=== PATIENT | male | born 1950 | race American Indian/Alaskan Native ===

== ENCOUNTER 2018-06-14 08:31 | Day surgery (SDC) | payer MEDICARE, OTHER ==
--- NOTE | 2018-06-11 10:57 | Anesthesia Consultation ---
Anesthesia Consult and Med Hx Date of service: 06/11/18 - Airway ROM Head & Neck: Adequate Mental/Hyoid Distance: Adequate Mallampati Class: Class II Intubation Access Assessment: Probably Good - Pulmonary Exam CTA: Yes - Cardiac Exam Cardiac Exam: RRR - Pre-Operative Health Status ASA Pre-Surgery Classification: ASA3 Proposed Anesthetic Plan: General Nerve Block: IS (hx of irreg heart beat, takes flecanide, and toporol, denies SOB, denies CAD, or stents) - Pulmonary Hx Smoking: No Hx Sleep Apnea: Yes - Cardiovascular System Hx Hypertension: No (Takes BP med but states as preventative due to A fib.) Hx Cardia Arrhythmia: Yes (PAROX. AFIB) - Central Nervous System Hx Seizures: No Hx Back Pain: Yes (Cervical stenosis) Hx Psychiatric Problems: No - Gastrointestinal Hx Gastroesophageal Reflux Disease: No - Endocrine Hx Non-Insulin Dependent Diabetes: No - Other Systems Hx Alcohol Use: Yes Hx Cancer: Yes Hx Obesity: No
[~2018-06-14 08:31] MED LIST: ADRENALINE P/F ONE; ANCEF/STERILE WATER 2 GM/20 ML IV NR; DEPO-Medrol ONE; LACTATED RINGERS 1,000 ML IV SCH; MARCAINE-EPI/PF 0.25%-1:200,000 INFILTRATI ONE; NEURONTIN PO NR; VERSED IV NR
[2018-06-14] MEDS ORDERED: SUBLIMAZE ONE (09:29)
[2018-06-14] MEDS ORDERED: DECADRON ONE (09:29)
[2018-06-14] MEDS ORDERED: PEPCID IV ONE (09:30)
[2018-06-14] MEDS ORDERED: DIPRIVAN 10 MG/ML IV ONE (09:42)
[2018-06-14] MEDS ORDERED: DILAUDID ONE (09:42)
[2018-06-14] MEDS ORDERED: XYLOCAINE MPF 2% ONE (09:43)
[2018-06-14] MEDS ORDERED: QUELICIN ONE (09:43)
[2018-06-14] MEDS ORDERED: ZEMURON IV ONE (09:43)
[2018-06-14] MEDS ORDERED: LACTATED RINGERS 1,000 ML ONE (11:53)
[2018-06-14] MEDS ORDERED: NACL 0.9% IR ONE ×3 (12:48)
[2018-06-14] MEDS ORDERED: ADRENALIN IV ONE (12:48)
[2018-06-14] MEDS ORDERED: DEPO-Medrol INTRA-ARTI ONE (12:48)
[2018-06-14] MEDS ORDERED: MARCAINE-EPI 0.5%-1:200,000 INFILTRATI ONE (12:48)
[2018-06-14] MEDS ORDERED: DILAUDID IV PRN (13:03)
[2018-06-14] MEDS ORDERED: ZOFRAN IV PRN (13:03)
--- NOTE | 2018-06-14 13:03 | Anesthesia Day of Surgery ---
Anesthesia Day of Surgery - Day of Surgery Patient Examined: Yes Patient H&P Reviewed: Yes Patient is NPO: Yes
[2018-06-14] MEDS ORDERED: ZOFRAN ONE (13:47)
[2018-06-14] MEDS ORDERED: ROBINUL ONE (14:12)
--- NOTE | 2018-06-14 14:35 | Procedure Note ---
Date of procedure: 06/14/18 Pre-op diagnosis: impingement syndrome possible rotator cuff tear left shoulder Post-op diagnosis: other (full-thickness rotator cuff tear left shoulder) Procedure: Arthroscopy left shoulder with subacromial decompression and a rotator cuff tear using suture anchors Arthroscopy left shoulder with subacromial decompression and rotator cuff tendon using suture anchors Procedure The patient was brought to the OR placed in the OR table in supine position following induction and intubation by anesthesia patient was placed in the right lateral decubitus position the left upper extremity was prepped and draped in the usual sterile manner. A timeout procedure was done to identify the patient and the correct operative site. Routine arthroscopic portals were made following introduction of the arthroscope and instruments and insufflation of the subacromial space with normal saline solution patient was noted to have a full-thickness rotator cuff tear which extended from the supraspinatus anteriorly towards the infraspinatus posteriorly along with a large bony spur off the lateral margins of the humeral head In addition he was also noted to have abundant synovial bursal thickening as well as significant impingement from the acromion and acromioclavicular joints. Using a tissue ablator the soft tissue was removed from both the bursal tissues as well as the periosteal tissues overlying the distal acromion and acromioclavicular joints A large bur was used to debride the bony impingement again this was done under arthroscopic visualization. The anatomic footprint was then seen and debrided using the tissue ablator the rotator cuff tendon was grasped using a tissue grasper and appeared to move quite mobile and to anterior cruciate ligament footprint.Next 2 suture anchor sutures were placed into these supraspinatus tendon anteriorly as well as the infraspinatus tendon posteriorly the suture anchors were secured into the greater tuberosity followed by tightening of the sutures and pulling the rotator cuff tendon firmly onto the anatomic footprint arthroscopic photographs were obtained showing good placement of the rotator cuff repair following this the wound was copiously irrigated via stab wounds were repaired with 2 postop dressings were applied the patient was extubated and was taken to postanesthesia recovery in stable condition. Patient will also receive a scalene nerve block for postop pain management Anesthesia: JACQUI, regional Surgeon: CARMEN CARDOZA Estimated blood loss: 50-100ml Pathology: none Condition: stable Disposition: PACU
[2018-06-14 16:49] VITALS: BP 110/76
--- NOTE | 2018-06-14 18:24 | Post Anesthesia Evaluation ---
- Post Anesthesia Evaluation Patient Participated: Yes Airway Patent: Yes Stable Respiratory Function: Yes Nausea/Vomiting: No Temp > 96.8F: Yes Pain Manageable: Yes Adequeate Hydration: Yes Anesthesia Complications: No
== END 2018-06-14 16:40 | disposition home or self-care (01) ==
LOC: OR 08:31
PROVIDERS: ATTEND Orthopaedic Surgery
DX: M75.112 Incomplete rotator cuff tear or rupture of left shoulder, not specified as traumatic (principal); M75.42 Impingement syndrome of left shoulder; I48.91 Unspecified atrial fibrillation; M19.90 Unspecified osteoarthritis, unspecified site; G47.33 Obstructive sleep apnea (adult) (pediatric); Z79.82 Long term (current) use of aspirin; Z79.899 Other long term (current) drug therapy; Z72.89 Other problems related to lifestyle; Z99.89 Dependence on other enabling machines and devices; Z92.3 Personal history of irradiation; Z85.46 Personal history of malignant neoplasm of prostate; Z98.890 Other specified postprocedural states
CPT/HCPCS: 29826; 29827; A4217; C1713; J0171; J0330; J0690; J1030; J1100; J1170; J2250; J2405; J2704; J3010; J7120

== ENCOUNTER 2018-08-30 10:28 | Outpatient (CLI) | payer MEDICARE, OTHER ==
[2018-08-30 13:51] LABS: Alanine Aminotransferase 18 units/L (7-56); Albumin 4.1 g/dL (3.9-5); BUN/Creatinine Ratio 12; Blood Urea Nitrogen 14 mg/dL (9-20); Calcium 9.3 mg/dL (8.4-10.2); Chol/HDL Ratio 2.63 %; HDL Cholesterol 65 mg/dL (40-59); Hemolysis Index 5; LDL Cholesterol,Direct 112 mg/dL (50-130)
== END 2018-08-30 10:29 | disposition home or self-care (01) ==
LOC: LAB 10:28
PROVIDERS: ATTEND Internal Medicine
DX: E78.5 Hyperlipidemia, unspecified (principal); I10 Essential (primary) hypertension; I48.91 Unspecified atrial fibrillation; M19.90 Unspecified osteoarthritis, unspecified site; N40.0 Benign prostatic hyperplasia without lower urinary tract symptoms; Z72.89 Other problems related to lifestyle
CPT/HCPCS: 36415; 80053; 80061

== ENCOUNTER 2019-01-08 10:04 | Outpatient (CLI) | payer MEDICARE, OTHER ==
--- NOTE | 2019-01-08 13:29 | Magnetic Resonance Report ---
MRI CERVICAL SPINE 01/08/2019 INDICATION / CLINICAL INFORMATION: Neck pain.. COMPARISON: None available. FINDINGS: GENERAL OBSERVATIONS: Unenhanced MR images of the cervical spine were obtained. Slight reversal of cervical lordosis is centered at the C4 level with the patient positioned for this exam. There is no evidence of spinal cord compression or intrinsic spinal cord abnormality. [id number] ANALYSIS: C7-T1: Minimal diffuse disc bulging. C6-7: Mild symmetric diffuse disc bulging. C5-6: Mild symmetric diffuse disc bulging. C4-5: Moderate symmetric diffuse disc bulging. Moderate central canal narrowing is present. C3-4: Prominent diffuse disc bulging associated with moderately severe central canal stenosis. Bilate ral foraminal narrowing is present. C2-3: The disc profile is well preserved. Right-sided facet degenerative changes are present, with no evidence of nerve root compression. CRANIO-CERVICAL JUNCTION: Unremarkable. BONE MARROW: Unremarkable. Mild degenerative changes. PARASPINAL SOFT TISSUES: No significant abnormality. IMPRESSION: Multilevel degenerative changes as detailed above. Moderately severe stenosis at C3-4. Moderate cent ral canal narrowing at C4-5. Signer Name: Herb Reed MD Signed: 01/08/2019 1:25 PM Workstation Name: [id number]
--- NOTE | 2019-01-08 15:39 | Magnetic Resonance Report ---
MRI LUMBAR SPINE 11/22/2018 INDICATION / CLINICAL INFORMATION: LUMBAGO WITH SCIATICA LEFT. COMPARISON: None available. FINDINGS: GENERAL OBSERVATIONS: Unenhanced MR images of the lumbar spine were obtained. Some patient motion artifact is present on these images. There is a left convex scoliosis of the lumbar spine present. Multilevel degenerative disc and facet changes are noted. [id number] ANALYSIS: L5-S1: Moderate diffuse disc bulging and left greater than right facet degenerative changes are prese nt., Associated with bilateral foraminal narrowing. L4-5: Prominent diffuse disc bulging associated with left greater than right facet degenerative hussein ges. Moderately severe central canal stenosis is present, associated with significant left-sided fora yonatan impingement. L3-4: Moderate diffuse disc bulging and facet degenerative changes are present. Moderate central ashok l narrowing is noted with no evidence of lateralization. L2-3: Mild diffuse disc bulging is present, slightly more pronounced on the right, with no evidence o f nerve root compression. L1-2: Mild diffuse disc bulging, also slightly more pronounced on the right. Right-sided foraminal na rrowing is present at this level. BONE MARROW: Degenerative bone marrow signal changes are present throughout the lumbar spine. SPINAL CORD/CAUDA EQUINA: The distal spinal cord and cauda equina are unremarkable. PARASPINAL SOFT TISSUES: No significant abnormality. IMPRESSION: Multilevel degenerative changes associated with scoliosis as detailed above. Left-sided foraminal shailesh rowing at L4-5. Signer Name: Herb Reed MD Signed: 01/08/2019 3:34 PM Workstation Name: [id number]
== END 2019-01-08 10:05 | disposition home or self-care (01) ==
LOC: MRI 10:04
PROVIDERS: ATTEND Orthopaedic Surgery
DX: M47.816 Spondylosis without myelopathy or radiculopathy, lumbar region (principal); M48.061 Spinal stenosis, lumbar region without neurogenic claudication; M51.26 Other intervertebral disc displacement, lumbar region; M47.812 Spondylosis without myelopathy or radiculopathy, cervical region; M48.02 Spinal stenosis, cervical region; M50.23 Other cervical disc displacement, cervicothoracic region; I10 Essential (primary) hypertension
CPT/HCPCS: 72141; 72148

== ENCOUNTER 2020-04-16 06:30 | Day surgery (SDC) | payer MEDICARE, OTHER ==
--- NOTE | 2020-04-13 11:13 | Anesthesia Consultation ---
Anesthesia Consult and Med Hx Date of service: 04/16/20 - Airway Anesthetic Teeth Evaluation: Caps, Bridges ROM Head & Neck: Adequate Mental/Hyoid Distance: Adequate Mallampati Class: Class III Intubation Access Assessment: Probably Good - Pre-Operative Health Status ASA Pre-Surgery Classification: ASA3 Nerve Block: Sciatic (BLOCK; GA if needed) - Pulmonary Hx Smoking: No Hx Asthma: No (+2FS) COPD: No Hx Pneumonia: No Hx Sleep Apnea: Yes (DX SLEEP APNEA , NO CPAP USE.) - Cardiovascular System Hx Hypertension: No (Takes BP med but states as preventative due to A fib.) Hx Heart Attack/AMI: No (Saw his gas dispatcher [phone] and is "cleared") Hx Cardia Arrhythmia: Yes (PAROX. AFIB) Hx Pacemaker: No Hx Internal Defibrillator: No - Central Nervous System Hx Seizures: No Hx Back Pain: Yes (Cervical stenosis CERVICALGIA) Hx Psychiatric Problems: No - Gastrointestinal Hx Ulcer: No Hx Gastroesophageal Reflux Disease: No - Endocrine Hx End Stage Renal Disease: No Hx Cirrhosis: No Hx Liver Disease: No Hx Non-Insulin Dependent Diabetes: No - Hematic Hx Anemia: No Hx Sickle Cell Disease: No - Other Systems Hx Alcohol Use: Yes (BEER & WINE 1-2 X WEEK) Hx Substance Use: No Hx Cancer: Yes (Prostate) Hx Obesity: No
[2020-04-13 11:36] LABS: Hematocrit 41.9 % (35.5-45.6); Hemoglobin 14.7 gm/dl (11.8-15.2); Mean Corpuscular HGB Conc 35 % (32-34); Mean Corpuscular Volume 94 fl (84-94); Platelet Count 167 K/mm3 (140-440); Red Blood Count 4.47 M/mm3 (3.65-5.03); Red Cell Distribution Width 13.3 % (13.2-15.2)
[2020-04-13 11:56] LABS: BUN/Creatinine Ratio 14; Blood Urea Nitrogen 17 mg/dL (9-20); Calcium 9.4 mg/dL (8.4-10.2); Hemolysis Index 21
--- NOTE | 2020-04-13 13:23 | XRay Report ---
RIGHT FOOT 3 VIEWS INDICATION: PREOP. COMPARISON: None. IMPRESSION: No acute osseous or soft tissue abnormality. No significant DJD. Signer Name: Tim Garay Jr, MD Signed: 04/13/2020 1:18 PM Workstation Name: [id number]
[2020-04-16] MEDS ORDERED: HYDROmorphone 1 MG/1 ML INJ IV PRN (07:18)
[2020-04-16] MEDS ORDERED: ONDANSETRON 4 MG/2 ML INJ IV PRN (07:18)
--- NOTE | 2020-04-16 07:18 | Anesthesia Day of Surgery ---
Anesthesia Day of Surgery - Day of Surgery Patient Examined: Yes Patient H&P Reviewed: Yes Patient is NPO: Yes Beta Blockers: Yes
[2020-04-16] MEDS ORDERED: BUPIVACAINE/PF (0.25%) 2.5 MG/ML 30 ML VIAL INFILTRATI ONE (07:28)
[2020-04-16] MEDS ORDERED: fentaNYL 100 MCG/2 ML INJ ONE (07:32)
[2020-04-16] MEDS ORDERED: MIDAZOLAM 2 MG/2 ML INJ ONE (07:32)
[2020-04-16 07:35] LABS: INR 1.04 (0.87-1.13); Partial Thromboplastin Time 25.6 Sec. (24.2-36.6)
[2020-04-16] MEDS ORDERED: LACTATED RINGERS 1,000 ML IV SCH (08:00)
[2020-04-16] MEDS ORDERED: ceFAZolin 1 GM VIAL ONE ×2 (08:27→08:28)
[2020-04-16] MEDS ORDERED: propofoL 200 MG/20 ML VIAL IV ONE ×2 (08:30→09:02)
[2020-04-16] MEDS ORDERED: KETAMINE/STERILE WATER 50 MG/ML SYRINGE ONE (08:43)
[2020-04-16] MEDS ORDERED: SODIUM CHLORIDE 0.9% 1000 ML 1,000 ML ONE (09:03)
[2020-04-16] MEDS ORDERED: SODIUM CHLORIDE 0.9% IRR 1,500 ML BOTTLE IR ONE (09:31)
--- NOTE | 2020-04-16 09:33 | Procedure Note ---
Date of procedure: 04/16/20 Pre-op diagnosis: Right bunion deformity Post-op diagnosis: same Procedure: Right bunionectomy Procedure Patient was brought to the operating room after being given a regional nerve block in preop holding patient was then placed onto the OR table in supine position next the right lower extremity was prepped and draped in the usual sterile manner. A timeout procedure was done to identify the patient and the correct operative site. The leg was exsanguinated followed by inflation of the pneumatic tourniquet to 300 mmHg Next a medial incision was made over the first metatarsophalangeal joint this was taken down sharply through skin and subcu the neurovascular structures were identified and were retracted out of the operative field next Hohmann retractors were placed around the first metatarsophalangeal joint a medial capsulotomy was performed with the base distally following shelling out of the bursa tissue the medial metatarsal eminence was was seen following this a sagittal saw was used to remove this medial eminence next the bony edges were then rasped smoothly a secondary incision was made in the first webspace webspace next using mosquito retractors the capsule and at the abductor hallucis brevis tendons were palpated and were released the wounds were then copiously irrigated the capsule was repaired using 0 Vicryl the wound was closed using with 3-0 Vicryl in a running subcuticular pattern routine postop dressings were applied the patient tolerated the procedure there were no complications Anesthesia: regional Surgeon: CARMEN CARDOZA Gis Administrator: ALLAN [place] Estimated blood loss: minimal Pathology: none Condition: stable Disposition: PACU
[2020-04-16] MEDS: HYDROmorphone 1 MG/1 ML INJ IV PRN ×2 (09:43→09:55)
--- NOTE | 2020-04-16 09:58 | Post Anesthesia Evaluation ---
- Post Anesthesia Evaluation Patient Participated: Yes Airway Patent: Yes Stable Respiratory Function: Yes Nausea/Vomiting: No Temp > 96.8F: Yes Pain Manageable: Yes Adequeate Hydration: Yes Anesthesia Complications: No Block Receding Appropriately: Yes Patient on Ventilator: No
[2020-04-16] MEDS ORDERED: oxyCODONE /ACETAMINOPHEN 5-325MG TAB PO PRN (10:30)
[2020-04-16 10:36] VITALS: BP 131/79
== END 2020-04-16 06:31 | disposition home or self-care (01) ==
LOC: OR 06:30
PROVIDERS: ATTEND Orthopaedic Surgery
DX: M21.611 Bunion of right foot (principal); M20.11 Hallux valgus (acquired), right foot; M17.12 Unilateral primary osteoarthritis, left knee; Z20.828 Contact with and (suspected) exposure to other viral communicable diseases; I42.9 Cardiomyopathy, unspecified; E78.00 Pure hypercholesterolemia, unspecified; I48.91 Unspecified atrial fibrillation; I10 Essential (primary) hypertension; J45.909 Unspecified asthma, uncomplicated; G47.30 Sleep apnea, unspecified; Z85.46 Personal history of malignant neoplasm of prostate; Z98.52 Vasectomy status; Z79.899 Other long term (current) drug therapy; Z98.890 Other specified postprocedural states; Z72.89 Other problems related to lifestyle; Z83.3 Family history of diabetes mellitus; Z82.49 Family history of ischemic heart disease and other diseases of the circulatory system
CPT/HCPCS: 28296; 36415; 73630; 80048; 85027; 85610; 85730; 88307; J0690; J1170; J2250; J2704; J3010; J3490; J7030; J7120; U0003; 64450; 88304; 88311

== ENCOUNTER 2021-12-16 10:26 | Outpatient (CLI) | payer MEDICARE, OTHER ==
[2021-12-16 12:05] LABS: Basophils % (Auto) 0.7 % (0.0-1.8); Eosinophils # (Auto) 0.1 K/mm3 (0.0-0.4); Eosinophils % (Auto) 1.4 % (0.0-4.3); Hematocrit 42.4 % (35.5-45.6); Hemoglobin 14.3 gm/dl (11.8-15.2); Lymphocytes # (Auto) 1.5 K/mm3 (1.2-5.4); Lymphocytes % (Auto) 28.2 % (13.4-35.0); Mean Corpuscular HGB Conc 34 % (32-34); Mean Corpuscular Volume 92 fl (84-94); Monocytes # (Auto) 0.3 K/mm3 (0.0-0.8); Monocytes % (Auto) 5.9 % (0.0-7.3); Platelet Count 183 K/mm3 (140-440); Red Blood Count 4.61 M/mm3 (3.65-5.03); Red Cell Distribution Width 14.7 % (13.2-15.2)
[2021-12-16 12:15] LABS: Alanine Aminotransferase 19 units/L (7-56); Albumin 4.3 g/dL (3.9-5); BUN/Creatinine Ratio 16; Blood Urea Nitrogen 19 mg/dL (9-20); Calcium 9.4 mg/dL (8.4-10.2); Chol/HDL Ratio 2.26 %; HDL Cholesterol 61 mg/dL (40-59); Hemolysis Index 9; LDL Cholesterol,Direct 74 mg/dL (50-130)
== END 2021-12-16 10:27 | disposition home or self-care (01) ==
LOC: LABHHL 10:26
PROVIDERS: ATTEND Internal Medicine
DX: E55.9 Vitamin D deficiency, unspecified (principal); E78.5 Hyperlipidemia, unspecified; I12.9 Hypertensive chronic kidney disease with stage 1 through stage 4 chronic kidney disease, or unspecified chronic kidney disease; N18.9 Chronic kidney disease, unspecified; R53.83 Other fatigue; Z00.00 Encounter for general adult medical examination without abnormal findings
CPT/HCPCS: 36415; 80053; 80061; 82306; 84443; 85025